=== PATIENT | female | born 1995 ===

== ENCOUNTER → 2020-01-18 | Outpatient (CLI) | payer BC | END | disposition home or self-care (01) | LOC: PRENATAL 09:05 → EDBD 09:05 → PRENATAL 09:30 | DX: O35.0XX1 Maternal care for (suspected) central nervous system malformation in fetus, fetus 1 (principal); O35.3XX1 Maternal care for (suspected) damage to fetus from viral disease in mother, fetus 1; O99.012 Anemia complicating pregnancy, second trimester; D64.89 Other specified anemias ==